=== PATIENT | female | born 1995 | race Two or more races ===

== ENCOUNTER 2017-10-28 07:36 | Inpatient (IN) | payer OTHER ==
[~2017-10-28] VITALS: Ht 160 cm; Wt 80.3 kg
[2017-10-28] MEDS ORDERED: DEXT 5%/LR + PITOCIN 20UNITS/L 1,000 ML IV SCH ×2 (07:54→23:29)
[2017-10-28] MEDS ORDERED: BUTORPHANOL TARTRATE 2 MG/ML VIAL IV PRN (08:00)
[2017-10-28] MEDS ORDERED: MISOPROSTOL 200MCG TABLET VG PRN (08:00)
[2017-10-28] MEDS ORDERED: LIDOCAINE HCL 1% 20ML VIAL (Pyxis) INJ INFIL PRN (08:00)
[2017-10-28] MEDS ORDERED: METHYLERGONOVINE MALEATE 0.2 MG/ML IM PRN (08:00)
[2017-10-28] MEDS ORDERED: CARBOPROST TROMETHAMINE 250 MCG/ML AMPUL IM PRN (08:00)
[2017-10-28] MEDS ORDERED: PENICILLIN G POTASSIUM 5 MMU in DEXT 5% WATER 100 ML IV SCH (08:00)
[2017-10-28] MEDS ORDERED: NALOXONE HCL 0.4 MG/ML 1ML VIAL IM PRN (08:00)
[2017-10-28] MEDS ORDERED: PENICILLIN G POTASSIUM 5 MMU in SODIUM CHLORIDE 0.9% 100 ML IV SCH (08:08)
[2017-10-28 09:01] LABS: BASOPHILS % 0.2 % (0.0-2.0); EOSINOPHILS % 0.5 % (0.0-5.0); HEMATOCRIT. 29.5 % (36.0-48.0); HEMOGLOBIN. 9.3 g/dL (12.0-16.0); LYMPHOCYTES % 13.6 % (20.0-50.0); MEAN CORPUSCULAR HEMOGLOBIN 22.8 pg (28.0-32.0); MEAN CORPUSCULAR VOLUME 71.9 fL (81.0-99.0); MEAN PLATELET VOLUME 7.8 fl (7.4-10.4); MONOCYTES % 4.4 % (2.0-8.0); NEUTROPHILS % 81.3 % (40.0-76.0); PLATELET 265 x1000/uL (130-400); RED CELL DISTRIBUTION WIDTH 16.1 % (11.6-14.6)
[2017-10-28 09:06] LABS: CLARITY URINE CLOUDY (CLEAR); COLOR URINE YELLOW (YELLOW); KETONES URINE NEGATIVE (NEGATIVE); LEUKOCYTE ESTERASE URINE 3+ (NEGATIVE); NITRITE URINE NEGATIVE (NEGATIVE); OCCULT BLOOD URINE 2+ (NEGATIVE); PH URINE 6.5 (4.5-8.0); PROTEIN URINE NEGATIVE (NEGATIVE); SPECIFIC GRAVITY URINE 1.016 (1.005-1.030); UROBILINOGEN URINE 0.2 E.U./dL (0.2-1.0)
[2017-10-28 09:11] LABS: INR 0.9; PROTHROMBIN TIME 9.6 sec (9.4-11.6)
[2017-10-28] MEDS: LACTATED RINGERS 1,000 ML IV SCH ×4 (09:16→21:41)
[2017-10-28 09:30] LABS: *AMPHETAMINES SCREEN URINE NEGATIVE (NEGATIVE); *BARBITURATES SCREEN URINE NEGATIVE (NEGATIVE); *BENZODIAZEPINES SCREEN URINE NEGATIVE (NEGATIVE); *COCAINE SCREEN URINE NEGATIVE (NEGATIVE); CANNABINOID URINE SCREEN NEGATIVE (NEGATIVE); METHADONE URINE SCREEN NEGATIVE (NEGATIVE); OPIATES URINE SCREEN NEGATIVE (NEGATIVE); PHENCYCLIDINE URINE SCREEN NEGATIVE (NEGATIVE)
[2017-10-28 09:50] LABS: HEPATITIS B SURFACE ANTIGEN NEGATIVE; RUBELLA IGG 36.1 IU/mL (4.99-10)
[2017-10-28] MEDS ORDERED: PENICILLIN G POTASSIUM 2.5 MMU in SODIUM CHLORIDE 0.9% 50 ML IV SCH (12:00)
[2017-10-28] MEDS ORDERED: BUPIVACAINE HCL/NS/PF EPIDURAL 100 ML EP ONE (14:58)
[2017-10-28] MEDS ORDERED: BUPIVACAINE HCL/PF 0.25% (2.5MG/ML) 10ML ONE ×4 (14:58→21:39)
[2017-10-28] MEDS ORDERED: FENTANYL CITRATE/PF 50MCG/ML 2ML VIAL ONE ×2 (14:58→19:16)
[2017-10-28] MEDS ORDERED: ONDANSETRON HCL 4MG/2ML VIAL IV PRN (15:45)
[2017-10-28] MEDS ORDERED: BUPIVACAINE HCL/NS/PF EPIDURAL 100 ML EP SCH (15:45)
[2017-10-28] MEDS ORDERED: METOCLOPRAMIDE HCL 10MG/2ML VIAL IV PRN (15:45)
[2017-10-28] MEDS ORDERED: DIPHENHYDRAMINE 50MG/ML VIAL IV PRN (15:45)
[2017-10-28] MEDS ORDERED: GLYCERIN/WITCH HAZEL LEAF MEDICATED PAD TOP PRN (23:30)
[2017-10-28] MEDS ORDERED: BENZOCAINE/LANOLIN/ALOE VERA SPRAY TOP PRN (23:30)
[2017-10-28] MEDS ORDERED: HEMORRHOIDAL SUPP PR PRN (23:30)
[2017-10-28] MEDS ORDERED: LANOLIN OINT 0.25 GM TUBE TOP PRN (23:30)
[2017-10-28] MEDS ORDERED: OXYCODONE HCL/ACETAMINOPHEN 5/325MG TABLET PO PRN ×2 (23:30)
[2017-10-28] MEDS ORDERED: IBUPROFEN 400MG TABLET PO PRN (23:30)
[2017-10-28] MEDS ORDERED: DIPHENHYDRAMINE 25MG CAPSULE PO PRN (23:30)
[2017-10-29 01:50] VITALS: BP 107/64
[2017-10-29 02:30] VITALS: BP 110/60
[2017-10-29 03:23] VITALS: BP 103/61
[2017-10-29 06:24] LABS: HEMATOCRIT. 26.6 % (36.0-48.0); HEMOGLOBIN. 8.5 g/dL (12.0-16.0); MEAN CORPUSCULAR HEMOGLOBIN 23.1 pg (28.0-32.0); MEAN CORPUSCULAR VOLUME 72.2 fL (81.0-99.0); MEAN PLATELET VOLUME 8.2 fl (7.4-10.4); PLATELET 219 x1000/uL (130-400); RED BLOOD CELL COUNT 3.68 mill/uL (4.2-5.4)
[2017-10-29 08:45] VITALS: BP 111/73
[2017-10-29] MEDS: SIMETHICONE 80MG TABLET CHEW PO SCH ×2 (09:00→21:00)
[2017-10-29] MEDS: PRENATAL VIT/FE FUMARATE/FA TABLET PO SCH (09:59)
[2017-10-29] MEDS ORDERED: INFLUENZA VIRUS VACCINE 0.5ML SYR IM ONE (10:00)
[2017-10-29] MEDS: FERROUS SULFATE 325MG TABLET PO SCH ×2 (13:52→18:11)
[2017-10-29 15:45] VITALS: BP 108/61
[2017-10-29 18:57] LABS: PLATELET ESTIMATE NORMAL
[2017-10-29] MEDS ORDERED: DOCUSATE SODIUM 100MG CAPSULE PO SCH (21:00)
[2017-10-29 23:40] VITALS: BP 107/59
[2017-10-30] MEDS: PRENATAL VIT/FE FUMARATE/FA TABLET PO SCH (07:50)
[2017-10-30] MEDS: SIMETHICONE 80MG TABLET CHEW PO SCH (07:51)
[2017-10-30] MEDS: FERROUS SULFATE 325MG TABLET PO SCH (07:51)
[2017-10-30 08:00] VITALS: BP 121/67
[2017-10-30] MEDS ORDERED: TETANUS, DIPHTHERIA, PERTUSSIS VAC/PF 0.5ML (>7YR OLD) IM ONE (23:30)
== END 2017-10-30 09:05 | disposition home or self-care (01) | DRG 560 ==
LOC: L&D 07:36 → OBSVTOIN 07:36 → L&D 08:38 → 7EST PP/OB 10-29 01:35
PROVIDERS: ADMIT Specialist; ATTEND Specialist
PROC: 0UQGXZZ Repair Vagina, External Approach (ICD-10-PCS; 2017-10-28)
PROC: 3E0S3BZ Introduction of Anesthetic Agent into Epidural Space, Percutaneous Approach (ICD-10-PCS; 2017-10-28)
PROC: 00HU33Z Insertion of Infusion Device into Spinal Canal, Percutaneous Approach (ICD-10-PCS; 2017-10-28)
PROC: 3E033VJ Introduction of Other Hormone into Peripheral Vein, Percutaneous Approach (ICD-10-PCS; 2017-10-28)
PROC: 10E0XZZ Delivery of Products of Conception, External Approach (ICD-10-PCS; principal; 2017-10-28 22:04)
DX: O48.0 Post-term pregnancy (principal); O71.4 Obstetric high vaginal laceration alone; O99.52 Diseases of the respiratory system complicating childbirth; D64.9 Anemia, unspecified; J45.909 Unspecified asthma, uncomplicated; O99.03 Anemia complicating the puerperium; Z3A.40 40 weeks gestation of pregnancy; Z37.0 Single live birth
CPT/HCPCS: 36415; 80305; 81001; 85025; 85610; 85730; 86592; 86703; 86762; 86850; 86900; 87340; 90715; J0595; J2540; J2590; J3010; J3490; J7050; J7060; J7120; A4315